=== PATIENT | female | born 1940 | race Hispanic/Latino ===

== ENCOUNTER 2017-08-14 06:45 | Outpatient (CLI) | payer MEDICARE ==
--- NOTE | 2017-08-16 12:37 | Vascular Lab Report ---
Aortic duplex Reason for exam: Abdominal aortic aneurysm Comments: Maximum diameter of the infrarenal aorta is 2.6 cm. This finding is consistent with mild ectasia but no true aneurysm formation. There is mild to moderate atherosclerotic change of the aorta. The celiac axis and superior mesenteric artery are patent with normal flow velocity. Impression: No evidence of infrarenal abdominal aortic aneurysm.
--- NOTE | 2017-08-18 12:19 | Vascular Lab Report ---
CAROTID DUPLEX STUDY: RIGHT PSVEDV CCA [id number] CCA DIST:[id number] ICA PROX:[id number] ICA MID:[id number] ICA DIST:[id number] ECA: 70 VERT: 54 14 LEFT PSVEDV CCA PROX:[id number] CCA DIST:8321 ICA PROX:6115 ICA MID:[id number] ICA DIST:[id number] ECA: 58 VERT: 43 15 REASON FOR EXAM: Carotid artery bruit. COMMENTS ON THE RIGHT: Doppler frequency analysis is consistent with 16 to 49 percent diameter reduction of the internal carotid artery. Minimal amount of plaque is seen. The internal carotid artery is markedly tortuous. There is a suggestion of mild luminal irregularity which cannot be further defined on this study. The common carotid artery is patent. The external carotid artery is patent. The vertebral artery has antegrade flow. COMMENTS ON THE LEFT: Doppler frequency analysis is consistent with 16 to 49 percent diameter reduction of the internal carotid artery. Minimal amount of plaque is seen. As on the right, the internal carotid arteries and markedly tortuous. The common carotid artery is patent. The external carotid artery is patent. The vertebral artery has antegrade flow. IMPRESSION: Less than 50% diameter reduction in the internal carotid arteries bilaterally. 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 On the right, there is some slight irregularity to the lumen of the internal carotid artery which cannot be further defined in this study. Consider CT angiography for further evaluation.
== END 2017-08-14 06:46 | disposition home or self-care (01) ==
LOC: US 06:45 → VAS 06:46
PROVIDERS: ATTEND Internal Medicine
DX: I71.4 Abdominal aortic aneurysm, without rupture (principal); R09.89 Other specified symptoms and signs involving the circulatory and respiratory systems
CPT/HCPCS: 93880; 93979